=== PATIENT | male | born 1980 | race African-American/Black ===

== ENCOUNTER 2022-06-28 14:23 | Emergency (ER) | payer OTHER ==
[~2022-06-28] VITALS: Ht 177.8 cm; Wt 87.5 kg
[2022-06-28 14:39] VITALS: BP 117/86
[2022-06-28] MEDS ORDERED: TETRACAINE HCL/PF 0.5% OPTH 4 ML BTL OP ONE (15:45)
[2022-06-28] MEDS ORDERED: FLUORESCEIN OPTH STRIP 1 MG OP ONE (16:30)
--- NOTE | 2022-06-28 16:50 | NUR ---
BILATERAL EYES IRRIGATED WITH EUSEBIO LENS
[2022-06-28] MEDS ORDERED: TOMOMETER 1 DEV DEV MC ONE (17:26)
[2022-06-28] MEDS ORDERED: POLY30DR2 OP (17:50)
[2022-06-28] MEDS ORDERED: LORA10TA19 PO (17:50)
--- NOTE | 2022-06-28 18:00 | NUR ---
Patient discharged with v/s stable. Written and verbal after care instructions ABOUT VIRAL AND ALLERGIC CONJUNCTIVITIS given and explained. Patient alert, oriented and verbalized understanding of instructions. Ambulatory with steady gait. All questions addressed prior to discharge. ID band removed. Patient advised to follow up with PMD. Rx of CLARITIN, VISINE DRY EYE RELIEF given. Patient educated on indication of medication including possible reaction and side effects. Opportunity to ask questions provided and answered.
== END 2022-06-28 18:00 | disposition home or self-care (01) ==
LOC: MED 14:23
DX: H10.9 Unspecified conjunctivitis (principal); R03.0 Elevated blood-pressure reading, without diagnosis of hypertension; Z79.899 Other long term (current) drug therapy
CPT/HCPCS: 99283; J7060